=== PATIENT | male | born 1950 | race Asian ===

== ENCOUNTER 2020-06-28 00:36 | Emergency (ER) | payer OTHER ==
[~2020-06-28] VITALS: Ht 182.9 cm; Wt 117.9 kg
[2020-06-28 00:56] LABS: PLATELET COUNT 137 K/uL (142-355)
[2020-06-28 00:59] LABS: POTASSIUM 3.6 mmol/L (3.6-5.2)
[2020-06-28 01:33] VITALS: BP 120/69; TEMP 98.7
[2020-06-28] MEDS ORDERED: TYLENOL325 MG PO (05:51)
[2020-06-28] MEDS ORDERED: ALLO100T22 PO (05:52)
[2020-06-28] MEDS ORDERED: LIPITOR40 MG PO (05:53)
[2020-06-28] MEDS ORDERED: CLOPIDOGREL75 MG PO (05:54)
[2020-06-28] MEDS ORDERED: DOCU100C10 PO (05:55)
[2020-06-28] MEDS ORDERED: DECUBI-VITE PO (05:56)
[2020-06-28] MEDS ORDERED: DIVA125C PO (05:57)
[2020-06-28] MEDS ORDERED: FURO40TA93 PO (05:58)
[2020-06-28] MEDS ORDERED: ELIQUIS5 MG PO (05:58)
[2020-06-28] MEDS ORDERED: GABA300C2 PO (05:59)
[2020-06-28] MEDS ORDERED: ROWEEPRA1000 MG PO (06:00)
[2020-06-28] MEDS ORDERED: NAMENDA5 MG PO (06:01)
[2020-06-28] MEDS ORDERED: LOSA50TA PO (06:01)
[2020-06-28] MEDS ORDERED: SEROQUEL50 MG PO (06:02)
[2020-06-28] MEDS ORDERED: LORA0.5T17 PO (06:03)
== END 2020-06-28 01:33 | disposition still patient (30) ==
LOC: ED 00:36
PROVIDERS: Hospitalist
DX: F25.8 Other schizoaffective disorders (principal); R46.89 Other symptoms and signs involving appearance and behavior; Z11.59 Encounter for screening for other viral diseases; Z04.6 Encounter for general psychiatric examination, requested by authority
CPT/HCPCS: 36415; 80053; 81000; 85027; 87635; 93005; 99285; U00003